=== PATIENT | female | born 1990 | race Two or more races ===

== ENCOUNTER 2018-09-22 12:32 | Emergency (ER) | payer OTHER ==
[~2018-09-22] VITALS: Ht 160 cm; Wt 63.5 kg
[2018-09-22 14:21] VITALS: BP 115/62
== END 2018-09-22 15:15 | disposition home or self-care (01) ==
LOC: ER 12:41
DX: B35.4 Tinea corporis (principal)

== ENCOUNTER 2018-12-28 11:45 | Emergency (ER) | payer OTHER ==
[~2018-12-28] VITALS: Ht 157.5 cm; Wt 59.0 kg
[2018-12-28 13:27] VITALS: BP 104/77
== END 2018-12-28 14:02 | disposition home or self-care (01) ==
LOC: ER 11:45
DX: N76.0 Acute vaginitis (principal)